=== PATIENT | female | born 1990 | race Caucasian/White ===

== ENCOUNTER 2018-07-23 14:41 | Emergency (ER) | payer OTHER ==
[~2018-07-23] VITALS: Ht 154.9 cm; Wt 112.9 kg
[~2018-07-23 14:41] MED LIST: BACTRIM DS TAB1 EACH PO; LEVAQUIN500 MG PO
== END 2018-07-23 16:01 | disposition home or self-care (01) ==
LOC: ED 14:41
DX: Z30.432 Encounter for removal of intrauterine contraceptive device (principal); R10.2 Pelvic and perineal pain; Z88.0 Allergy status to penicillin; Z88.1 Allergy status to other antibiotic agents
CPT/HCPCS: 87491; 87591; 99284

== ENCOUNTER 2020-04-12 20:44 | Emergency (ER) | payer OTHER ==
[~2020-04-12] VITALS: Ht 154.9 cm; Wt 131.5 kg
[2020-04-12] MEDS ORDERED: METRONIDAZOLE500 MG PO (21:07)
== END 2020-04-12 22:54 | disposition home or self-care (01) ==
LOC: ED 20:44
DX: R10.84 Generalized abdominal pain (principal); Z88.0 Allergy status to penicillin; Z88.1 Allergy status to other antibiotic agents; Z79.899 Other long term (current) drug therapy
CPT/HCPCS: 80053; 81001; 83690; 84703; 85025; 96374; 96375; 96376; 99284-25; J1170; J2405

== ENCOUNTER 2021-05-29 15:19 | Emergency (ER) | payer OTHER ==
[~2021-05-29] VITALS: Ht 154.9 cm; Wt 142.0 kg
[~2021-05-29 15:19] MED LIST changes: +METRONIDAZOLE500 MG PO
[2021-05-29] MEDS ORDERED: FLUVOXAMINE MA100 MG PO (15:45)
[2021-05-29] MEDS ORDERED: CITALOPRAM HBR20 MG PO (15:45)
--- NOTE | 2021-05-30 20:24 | EKG ---
[facility] [address] [facility] [place], [place] [address] Signed Normal sinus rhythm Normal ECG No previous ECGs available Confirmed by KEITH DE LA VEGA MD ([id number]) on 05/30/2021 8:24:30 PM Electronically Signed By: KEITH DE LA VEGA MD 05/30/212023 PATIENT NAME: JOSH RDZ Electrocardiogram DATE OF : 88 PHYSICIAN: KEITH DE LA VEGA MD REPORT #: [id number] REPORT IS CONFIDENTIAL AND NOT TO BE RELEASED WITHOUT AUTHORIZATION
== END 2021-05-29 16:00 | disposition home or self-care (01) ==
LOC: ED 15:19
DX: U07.1 COVID-19 (principal); Z88.0 Allergy status to penicillin; Z88.1 Allergy status to other antibiotic agents; Z79.899 Other long term (current) drug therapy
CPT/HCPCS: 93005; 93010; 99284-25

== ENCOUNTER 2021-06-02 22:55 | Emergency (ER) | payer OTHER ==
[~2021-06-02] VITALS: Ht 154.9 cm; Wt 141.0 kg
[~2021-06-02 22:55] MED LIST changes: +CITALOPRAM HBR20 MG PO; +FLUVOXAMINE MA100 MG PO
--- OUTSIDE RECORDS SUMMARY | 2021-06-02 22:58 | XMS ---
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 PHONE: Unknown Soumya has no Care Guidelines for this patient. Winter VISIT COUNT (12 MO.) 2 [facility] TOTAL 2 NOTE: Visits indicate total known visits. 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
[2021-06-02] MEDS ORDERED: DOXYCYCLINE MO100 M1 PO (23:14)
[2021-06-03] MEDS ORDERED: PREDNISONE20 MG PO (00:45)
[2021-06-03] MEDS ORDERED: VENTOLIN HFA18 GM INH (00:45)
[2021-06-04] MEDS ORDERED: CITALOPRAM HBR20 MG PO (15:21)
== END 2021-06-03 01:15 | disposition home or self-care (01) ==
LOC: ED 22:55
DX: U07.1 COVID-19 (principal); Z88.0 Allergy status to penicillin; Z88.1 Allergy status to other antibiotic agents; Z79.899 Other long term (current) drug therapy
CPT/HCPCS: 71045; 94640; 94664; 99284-25

== ENCOUNTER 2021-06-04 14:06 | Observation (INO) | payer OTHER ==
[~2021-06-04] VITALS: Ht 154.9 cm; Wt 142.1 kg
[~2021-06-04 14:06] MED LIST changes: +DOXYCYCLINE MO100 M1 PO; +PREDNISONE20 MG PO; +VENTOLIN HFA18 GM INH
--- OUTSIDE RECORDS SUMMARY | 2021-06-04 14:08 | XMS ---
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 PHONE: Unknown Soumya has no Care Guidelines for this patient. Winter VISIT COUNT (12 MO.) 3 [facility] TOTAL 3 NOTE: Visits indicate total known visits. 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
[2021-06-04] MEDS ORDERED: CITALOPRAM HBR20 MG PO (15:21)
--- NOTE | 2021-06-04 18:53 | EKG ---
[facility] [address] [place] [address] Signed Normal sinus rhythm Normal ECG When compared with ECG of 29-MAY-2021 15:27, No significant change was found Confirmed by KELSEA LEWIS MD ([id number]) on 06/04/2021 6:52:54 PM Electronically Signed By: KELSEA LEWIS MD 06/04/21 185 PATIENT NAME: KENDELLJOSH Electrocardiogram DATE OF : 88 PHYSICIAN: KELSEA LEWIS MD REPORT #: [id number] REPORT IS CONFIDENTIAL AND NOT TO BE RELEASED WITHOUT AUTHORIZATION
[2021-06-05] MEDS ORDERED: ACETAMINOPHEN325 M1 PO (09:19)
[2021-06-05] MEDS ORDERED: IBUPROFEN200 MG PO (09:19)
== END 2021-06-05 15:08 | disposition home or self-care (01) ==
LOC: ED 14:06 → MS 14:07
PROVIDERS: ADMIT Internal Medicine; ATTEND Internal Medicine
DX: R20.2 Paresthesia of skin (principal); E66.01 Morbid (severe) obesity due to excess calories; Z68.43 Body mass index [BMI] 50.0-59.9, adult; Z88.0 Allergy status to penicillin; Z88.1 Allergy status to other antibiotic agents
CPT/HCPCS: 36415; 70450; 70496; 70498; 70551; 71045; 72141; 80053; 80061; 81001; 83036; 84703; 85025; 85610; 85730; 93005; 93010; 93306; 99285-25; J1650; Q9967

== ENCOUNTER 2021-10-06 08:50 | Day surgery (SDC) | payer BC, OTHER ==
[~2021-10-06] VITALS: Ht 154.9 cm; Wt 142.7 kg
--- NOTE | ~2021-10-06 | OR ---
[facility] [address] [place], [place] [address] Draft DATE OF OPERATION: 10/06/2021 SURGEON: Mingo Piña MD PREOPERATIVE DIAGNOSIS: Chronic ear infections. POSTOPERATIVE DIAGNOSIS: Chronic ear infections. PROCEDURE: Bilateral myringotomy and ventilation tube insertion with T tubes. ANESTHESIA: General LMA; Gomez CHAVEZ. PREOPERATIVE HISTORY: Josh is a 30-year-old lady with a long history of ear problems, multiple sets of ear tubes in the past, recent infections, persistent middle ear effusions with conductive hearing loss on audio and flat tympanograms. She is taken to the operating room for the above-mentioned procedures. OPERATIVE PROCEDURE AND FINDINGS: After informed consent, the patient was taken to the operating room, placed in supine position where general LMA anesthesia was induced. The patient and procedure were verified. Left ear was examined with the operating microscope. The eardrum was retracted, tympanosclerotic with an anterior-inferior monomeric membrane. Incision was made radial myringotomy through the monomeric membrane. No middle ear effusion. T-Tube placed in the myringotomy site. Cipro ophthalmic drops applied to the ear canal and cotton ball in the meatus. The right ear was examined with the operating microscope. The eardrum was dull and retracted. Tympanosclerotic with an anterior inferior monomeric membrane as per the other side. Incision was made, anterior radial myringotomy anterior inferior through the monomeric membrane and thick mucoid effusion suctioned from the middle ear space. T-Tube placed, drops, cotton ball. The patient tolerated the procedure well, was awakened, extubated, and transported to recovery room in good condition. No complications. BLOOD LOSS: PATIENT NAME: JOSH RDZ OPERATIVE REPORT DATE OF : 88 REPORT #: [id number] PHYSICIAN: MINGO PIÑA MD PCP: MAYA SIMPSON DO REPORT IS CONFIDENTIAL AND NOT TO BE RELEASED WITHOUT AUTHORIZATION [facility] [address] [place], [place] [address], [place] [address] [facility]. SPECIMEN: None. DRAINS: None. Mingo Piña MD GC/VERITO /[id number] Copies: ~ PATIENT NAME: JOSH RDZ OPERATIVE REPORT DATE OF : [birth year] REPORT #: [id number] PHYSICIAN: MINGO PIÑA MD PCP: MAYA SIMPSON DO REPORT IS CONFIDENTIAL AND NOT TO BE RELEASED WITHOUT AUTHORIZATION
[~2021-10-06 08:50] MED LIST changes: +ACETAMINOPHEN325 M1 PO; +CELEXA20 MG PO; +IBUPROFEN200 MG PO
--- NOTE | 2021-10-06 10:58 | NUR ---
10/06/21 1058 Shelbi Dale 1051 PATIENT ARRIVES TO PACU UNRESPONSIVE TO PAIN. ORAL AIRWAY IN PLACE. RESP EVEN AND UNLABORED, MASK AT 6 LITERS.
--- NOTE | 2021-10-06 11:50 | NUR ---
PATIENT BACK FROM PACU. RECIEVED REPORT FROM ALLEN YOST. PATIENT IS ALERT AND ORIENTED. BREATHING EQUAL AND AND UNLABORED. OXYGEN SATURATIONS ARE ABOVE 92% ON ROOM AIR. COTTON BALLS IN PATIENT EAR ARE CLEAN, DRY AND INTACT. PATIENT IS DRINKING WATER, EATING PUDDING. MOTHER AT BEDSIDE. NO QUESTIONS AT THIS TIME. CALL LIGHT WITHIN REACH NO FUTHER NEEDS.
--- NOTE | 2021-10-06 12:56 | NUR ---
PATIENT ASSESSMENT COMPLETE. ALERT AND ORIENTED. BREAHTING EQUAL AND UNLABORED. OXYGEN SATURATIONS ABOVE 95%. PATIENT DENIES ANY PAIN OR NAUSEA. PATIENT WAS ABLE TO AMBULATE TO THE RESTROOM AND VOID. PATIENT WAS ABLE TO DRESS SELF. DISCHARGE CRITERIA MET AND DISCHARGE INSTRUCTIONS GIVEN. PATIENT WAS WHEELED OUT OF FACILITY TO PRIVATE AUTO WITH MOM. NO QUESTIONS FROM PATIENT OR FAMILIY.
== END 2021-10-06 12:56 | disposition home or self-care (01) ==
LOC: DS 08:50 → OPS 08:50
PROVIDERS: ATTEND Otolaryngology
PROC: 099570Z Drainage of Right Middle Ear with Drainage Device, Via Natural or Artificial Opening (ICD-10-PCS; 2021-10-06)
PROC: 099670Z Drainage of Left Middle Ear with Drainage Device, Via Natural or Artificial Opening (ICD-10-PCS; principal; 2021-10-06 10:30)
DX: H65.31 Chronic mucoid otitis media, right ear (principal); H65.23 Chronic serous otitis media, bilateral; Z88.1 Allergy status to other antibiotic agents; Z88.0 Allergy status to penicillin; H90.0 Conductive hearing loss, bilateral
CPT/HCPCS: J0461; J1100; J1885; J2250; J2405; J2704; J2765; J3010; J7121

== ENCOUNTER 2022-05-15 18:08 | Emergency (ER) | payer OTHER ==
[~2022-05-15] VITALS: Ht 154.9 cm; Wt 142.8 kg
== END 2022-05-15 22:06 | disposition home or self-care (01) ==
LOC: ED 18:08
DX: M26.602 Left temporomandibular joint disorder, unspecified (principal); F43.10 Post-traumatic stress disorder, unspecified; Z88.0 Allergy status to penicillin; Z88.1 Allergy status to other antibiotic agents; Z79.899 Other long term (current) drug therapy
CPT/HCPCS: 96372; 99283; J1885

== ENCOUNTER 2022-07-25 18:40 | Emergency (ER) | payer OTHER ==
[~2022-07-25] VITALS: Ht 154.9 cm; Wt 155.0 kg
[2022-07-25] MEDS ORDERED: PRILOSEC OTC20 MG PO (20:22)
--- NOTE | 2022-07-27 18:54 | EKG ---
[facility] [address] [facility] [place], [place] [address] Signed Normal sinus rhythm Normal ECG When compared with ECG of 04-JUN-2021 14:49, No significant change was found Confirmed by KEITH DE LA VEGA MD ([id number]) on 07/27/2022 6:54:00 PM Electronically Signed By: KEITH DE LA VEGA MD 07/27/22 1854 PATIENT NAME: KENDELLKIRSTINJOSH LYNN Electrocardiogram DATE OF : 88 PHYSICIAN: KEITH DE LA VEGA MD REPORT #: [id number] REPORT IS CONFIDENTIAL AND NOT TO BE RELEASED WITHOUT AUTHORIZATION
== END 2022-07-25 20:32 | disposition home or self-care (01) ==
LOC: ED 18:40
DX: K21.9 Gastro-esophageal reflux disease without esophagitis (principal); Z88.0 Allergy status to penicillin; Z88.1 Allergy status to other antibiotic agents
CPT/HCPCS: 36415; 71045; 80053; 83735; 84484; 85025; 93005; 93010; 96374; 99285-25; A9270

== ENCOUNTER 2022-08-02 18:35 | Emergency (ER) | payer OTHER ==
[~2022-08-02] VITALS: Ht 152.4 cm; Wt 154.5 kg
[~2022-08-02 18:35] MED LIST changes: +PRILOSEC OTC20 MG PO
--- OUTSIDE RECORDS SUMMARY | 2022-08-02 18:44 | XMS ---
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 Winter VISIT COUNT (12 MO.) [address] [place] [address] TOTAL 3 NOTE: Visits indicate total known visits. ED/UCC VISIT TRACKING (12 MO.) 08/02/2022 18:37 [facility] TYPE: Emergency COMPLAINT: - SWELLING LOWER NECK,DIZZY 07/25/2022 18:41 [facility] TYPE: Emergency COMPLAINT: - CP DIAGNOSES: - Gastro-esophageal reflux disease without esophagitis - Allergy status to other antibiotic agents - Precordial pain - Allergy status to penicillin 05/15/2022 18:[address] [facility] [place] TYPE: Emergency COMPLAINT: - TMJ HAVING A FLAIR UP DIAGNOSES: - Other prison (current) drug therapy - Post-traumatic stress disorder, unspecified - Otalgia, left ear - Allergy status to penicillin - Left temporomandibular joint disorder, unspecified - Allergy status to other antibiotic agents INPATIENT VISIT TRACKING (12 MO.) No inpatient visits to display in this time frame [id number]
== END 2022-08-02 20:08 | disposition home or self-care (01) ==
LOC: ED 18:35
DX: M54.6 Pain in thoracic spine (principal); M54.2 Cervicalgia; R42 Dizziness and giddiness; F43.10 Post-traumatic stress disorder, unspecified; Z88.0 Allergy status to penicillin; Z88.1 Allergy status to other antibiotic agents; Z79.899 Other long term (current) drug therapy
CPT/HCPCS: 36415; 80053; 81003; 84703; 85025; 99284

== ENCOUNTER 2022-09-11 10:49 | Emergency (ER) | payer OTHER ==
[~2022-09-11] VITALS: Ht 154.9 cm; Wt 154.5 kg
--- OUTSIDE RECORDS SUMMARY | 2022-09-11 10:56 | XMS ---
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 [facility] [facility] NOTE: Visits indicate total known visits. ED/UCC VISIT TRACKING (12 MO.) [facility] COMPLAINT: - LEFT EAR PAIN 08/16/2022 16:26 [facility] Reji LAMAS TYPE: Emergency DIAGNOSES: - Cervicalgia - Dorsalgia, unspecified - Neck Pain - neck tingling, numbness - Numbness 08/13/2022 17:47 [facility] MeseretAsuncion LAMAS TYPE: Emergency DIAGNOSES: - Edema, unspecified - Edema - fluid retention 08/02/2022 18:37 [facility]Arvin [place] TYPE: Emergency COMPLAINT: - SWELLING LOWER NECK,DIZZY DIAGNOSES: - Allergy status to other antibiotic agents - Allergy status to penicillin - Cervicalgia - Dizziness and giddiness - Other care home (current) drug therapy - Pain in thoracic spine - Post-traumatic stress disorder, unspecified 07/25/2022 18:41 [facility]manArvin [place] TYPE: Emergency COMPLAINT: - CP DIAGNOSES: - Allergy status to other antibiotic agents - Allergy status to penicillin - Gastro-esophageal reflux disease without esophagitis - Precordial pain 05/15/2022 18:10 [facility]Arvin [facility] [place] TYPE: Emergency COMPLAINT: - TMJ HAVING A FLAIR UP DIAGNOSES: - Allergy status to other antibiotic agents - Allergy status to penicillin - Left temporomandibular joint disorder, unspecified - Otalgia, left ear - Other care home (current) drug therapy - Post-traumatic stress disorder, unspecified INPATIENT VISIT TRACKING (12 MO.) No inpatient visits to display in this time frame [id number]
[2022-09-11] MEDS ORDERED: DOXYCYCLINE MO100 MG PO (11:11)
[2022-09-11] MEDS ORDERED: ZANAFLEX4 MG PO (11:11)
[2022-09-11] MEDS ORDERED: BACTRIM DS TAB1 EACH PO (11:15)
[2022-09-11] MEDS ORDERED: HYDROCODON-ACE1 EA10 PO (11:15)
[2022-09-11] MEDS ORDERED: CIPRODEX OTIC7.5 ML OTIC (11:15)
[2022-09-11 11:30] VITALS: BP 121/83
== END 2022-09-11 11:30 | disposition home or self-care (01) ==
LOC: ED 10:49
DX: H66.92 Otitis media, unspecified, left ear (principal); F41.9 Anxiety disorder, unspecified; F32.A Depression, unspecified; F43.10 Post-traumatic stress disorder, unspecified; Z79.899 Other long term (current) drug therapy; Z88.1 Allergy status to other antibiotic agents; Z88.0 Allergy status to penicillin
CPT/HCPCS: 99282